=== PATIENT | male | born 1980 | race Caucasian/White ===

== ENCOUNTER 2025-02-04 15:42 | Emergency (ER) | payer OTHER, SELFPAY ==
[2025-02-04 16:07] VITALS: BP 120/86; PULSE 83; RESP 16; TEMP 36.2; O2SAT 98
--- NOTE | 2025-02-04 16:09 | ED_ITS ---
HPI - Skin/Abscess/Foreign Bdy General Chief complaint: Skin/Abscess/Foreign Body Stated complaint: bumps underneath skin patient presents to [facility] with complaints of redness, rash, swelling, slight pain, and drainage from right side of face. Patient noted this began about 1 week ago he noticed what he thought was a pimple to this area and some swelling behind his ear. Patient noted he has been doing warm compresses to the area but yesterday they began to get significant drainage from behind the ear. Noted today the area on cheek is much smaller. Denies fever, chills, body aches, Headache, dizziness,or ear pain. Related Data Home Medications ?Medication ?Instructions ?Recorded ?Confirmed ?Last Taken ?Type omeprazole 40 mg capsule,delayed mg 02/04/25 Unknown History release Allergies Allergy/AdvReac Type Severity Reaction Status Date / Time No Known Allergies Allergy Verified 02/04/25 16:20 Review of Systems Constitutional: Constitutional: Reports as per HPI, Denies chills, Denies fatigue, Denies fever(s) and Denies weakness Eyes: Eyes: Reports no additional eye complaints ENT: Reports as per HPI, Denies vertigo, Denies dizziness, Denies epistaxis and Denies nasal congestion Comments: denies ear pain Cardiovascular: Cardiovascular: Reports no additional cardiovascular complaints Respiratory: Respiratory: Reports no additional respiratory complaints Gastrointestinal: Gastrointestinal: Reports no additional gastrointestinal complaints Genitourinary: Genitourinary: Reports no additional male genitourinary complaints Musculoskeletal: Musculoskeletal: Reports no additional musculoskeletal complaints Integumentary/Breasts: Skin/Breast: Reports as per HPI, Denies pruritus, Reports erythema and Reports rash Comments: redness rash, pain to right cheek/ synagogue. puncture with minimal bruising right behind ear Neurologic: Reports as per HPI, Denies vertigo and Denies dizziness Psychiatric: Psychiatric: Reports no additional psychiatric complaints Endocrine: Endocrine: Reports no additional endocrine complaints Hematologic/Lymphatic: Hematologic/Lymphatic: Reports no additional hematologic/lymphatic complaints Allergic/Immunologic: Allergic/Immunologic: Reports no additional allergic/immunologic complaints [facility] Family History Family History Father Diabetes mellitus, Onset Age: 54 Family history of seizure disorder, Onset Age: 54 Mother Family history of osteoporosis Grandparent Acute myocardial infarction, Onset Age: 80 Family history of seizure disorder Social History Social History Smoking status: Never smoker Second hand tobacco smoke exposure: No Alcohol intake: current Drinks per week: 4 Alcohol use details: beer Substance use: never Exam Const: General: healthy appearing and no acute distress Nutritional Appearance: well nourished Orientation/consciousness: patient oriented x3 Limitations: no limitations HENMT: Head: normal to inspection Ears: external ears normal and TM's normal bilaterally Face/Nose/Sinus: Normal external nose present and Normal nares present Face and sinus: abnormal facial exam and sinuses nontender Mouth: Yes Normal oral and palatal mucosa present and Yes lip normal Neck: Neck: lymphadenopathy ( right pre and postauricular) Resp: Effort & Inspection: normal respiratory effort Auscultation: clear to auscultation bilaterally Cardio: Rate: regular rate Rhythm: regular rhythm Skin: Other: circular area of erythema/ rash to right synagogue/right cheek area. Mild tenderness with palpation. Mild swelling noted to this area. no fluctuance Puncture with minimal bruising surrounding noted to right postauricular area. Denies swelling or active drainage. Neuro: General: patient oriented x3 Speech: normal speech Gait exam (Neuro): Normal gait present Psych: Mental Status: mental status grossly normal Affect: normal affect Attitude: cooperative Course Course Level of Care: Express Care Visit Vital Signs Vital signs: Vital Signs Temperature 97.2 F L 02/04/25 16:07 Pulse Rate 83 02/04/25 16:07 Respiratory Rate 16 02/04/25 16:07 Blood Pressure 120/86 02/04/25 16:07 Pulse Oximetry 98 02/04/25 16:07 Temperature 97.2 F L 02/04/25 16:07 Pulse Rate 83 02/04/25 16:07 Respiratory Rate 16 02/04/25 16:07 Blood Pressure 120/86 02/04/25 16:07 Pulse Oximetry 98 02/04/25 16:07 MDM - Skin/Abscess/Foreign Bdy MDM Narrative Medical decision making narrative: Discharge instructions reviewed with patient, as well as provided in writing per nursing staff. The instructions also include specific and strict return/GO TO THE ER as well as f/u information. All questions have been answered, and the patient deny any further questions with discharge and discharge plan. Differential Diagnosis Differential diagnosis: Likely abscess of skin or subcutaneous tissue, viral exa nthem, allergic reaction to drug, cellulitis, insect bites and contact dermatitis Medical Records Attestation: I reviewed the patient's medical records. Discharge Plan Discharge Clinical Impression: Cellulitis of face Patient Disposition: Home Condition: Stable Instructions: Antibiotic Form, Cellulitis (ED) Additional Instructions: Clean with soap and water only; Avoid using alcohol and peroxide. Elevate the affected area if possible Alternate Tylenol/ibuprofen for as needed for pain Acetaminophen(Tylenol) 650- 1000mg every 4-6hours with max of 4000mg/day. Nonsteroidal anti-inflammatory agent (NSAIDs-ibuprofen): 400mg every 4-6hours with max 2400mg/day Take antibiotic until it's gone. Please schedule a follow up visit with your personal physician for further evaluation and treatment within 3-5days OR if your symptoms persist, change or worsen significantly before you can contact your personal physician then please, without delay, go to the emergency department for further evaluation. Patient Language: Lao Prescriptions: New sulfamethoxazole-trimethoprim [Bactrim DS] 800-160 mg tablet 1 tablet PO Q12H Qty: 14 0RF methylprednisolone [Medrol (Robert)] 4 mg tablets,dose pack See Rx Instructions .ROUTE .COMPLEX Qty: 21 0RF Rx Instructions: for 6 days No Action omeprazole 40 mg capsule,delayed release(/EC) Follow-up/Referrals: Marino,Osmar Shelton DO [Primary Care Provider] - Time of Disposition: 16:24
== END 2025-02-04 16:28 | disposition home or self-care (01) ==
PROVIDERS: Emergency Provider Nurse Practitioner Family; PCP Family Medicine
DX: L03.211 Cellulitis of face (principal)
CPT/HCPCS: 99213; G0463